=== PATIENT | female | born 1975 | race Caucasian/White ===

== ENCOUNTER 2016-03-03 14:16 | Emergency (ER) | payer BC ==
--- NOTE | 2016-03-03 14:46 | ER Document Report ---
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 She took it again this morning and she got a diastolic of 101. She went to [facility] and they were getting triple over triple blood pressures they sent her to the emergency department.. 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 - Related Data Allergies/Adverse Reactions: No Known Allergies Allergy (Unverified 03/03/16 14:46)
--- NOTE | 2016-03-03 16:19 | ER Document Report ---
ED General - General Chief Complaint: High Blood Pressure Stated Complaint: BLOOD PRESSURE PROBLEM Mode of Arrival: Ambulatory TRAVEL OUTSIDE OF THE [place] IN LAST 30 DAYS: No - HPI Patient complains to provider of: hypertension headache Notes: Patient coming in with a headache in the left frontal region and also with left lateral neck pain ongoing for the last to 3 days. He also states last few daysor blood pressure was elevated. Patient went to a local urgent care blood pressure systolic was over 180 states last time he took her blood pressure her diastolic was greater than 140. Patient was encouraged to come to the ER. Upon arrival patient's blood pressure now systolic of 150. Patient states she did take Motrin today headache is improving. Patient states increased stress due to work over the last few days. Otherwise denies any other symptoms no photophobia no trauma no fevers or chills no nausea no vomiting no diarrhea - Related Data Allergies/Adverse Reactions: No Known Allergies Allergy (Unverified 03/03/16 14:46) Past Medical History - General Information source: Patient - Social History Smoking Status: Never Smoker Chew tobacco use (# tins/day): No Frequency of alcohol use: None Drug Abuse: None Family History: Reviewed & Not Pertinent Patient has suicidal ideation: No Patient has homicidal ideation: No Renal/ Medical History: Denies: Hx Peritoneal Dialysis Review of Systems - Review of Systems Constitutional: Other - Hypertension EENT: No symptoms reported Cardiovascular: No symptoms reported Respiratory: No symptoms reported Gastrointestinal: No symptoms reported Genitourinary: No symptoms reported Female Genitourinary: No symptoms reported Musculoskeletal: No symptoms reported Skin: No symptoms reported Hematologic/Lymphatic: No symptoms reported Neurological/Psychological: Headaches -: Yes All other systems reviewed and negative Physical Exam - Vital signs Vitals: Temp Pulse Resp BP Pulse Ox 98 F 84 16 154/98 H 99 03/03/16 14:30 03/03/16 14:30 03/03/16 14:30 03/03/16 14:30 03/03/16 14:30 Interpretation: Hypertensive - General General appearance: Appears well, Alert - HEENT Head: Normocephalic, Atraumatic Eyes: Normal Cornea: Normal Pupils: PERRL Ears: Normal External canal: Normal Tympanic membrane: Normal Sinus: Normal Nasal: Normal Mouth/Lips: Normal Pharynx: Normal Neck: Normal - Respiratory Respiratory status: No respiratory distress Chest status: Nontender Breath sounds: Normal Chest palpation: Normal - Cardiovascular Rhythm: Regular Heart sounds: Normal auscultation Murmur: No - Abdominal Inspection: Normal Distension: No distension Bowel sounds: Normal Tenderness: Nontender Organomegaly: No organomegaly - Back Back: Normal, Nontender - Extremities General upper extremity: Normal inspection, Nontender, Normal color, Normal ROM , Normal temperature General lower extremity: Normal inspection, Nontender, Normal color, Normal ROM , Normal temperature, Normal weight bearing. No: Christine's sign - Neurological Neuro grossly intact: Yes Cognition: Normal Orientation: AAOx4 Arnaldo Coma Scale Eye Opening: Spontaneous [place] Coma Scale Verbal: Oriented [place] Coma Scale Motor: Obeys Commands Arnaldo Coma Scale Total: 15 Speech: Normal Motor strength normal: LUE, RUE, LLE, RLE Sensory: Normal - Psychological Associated symptoms: Normal affect, Normal mood - Skin Skin Temperature: Warm Skin Moisture: Dry Skin Color: Normal Course - Re-evaluation Re-evalutation: 03/03/16 22:47 Long discussion about hypertension and headaches. More likely patient's headache is related to tension is noted is in a tension headache distribution. Patient also wants information about hypertension treatment in the ER this time does not think she is appropriate for any treatment recommend follow-up with her PCP. Patient will be given Valium for treatment of her tension headaches. Patient agrees to plan will be discharged home. - Vital Signs Vital signs: Temp Pulse Resp BP Pulse Ox 98 F 81 20 148/96 H 98 03/03/16 16:47 03/03/16 16:47 03/03/16 16:47 03/03/16 16:47 03/03/16 16:47 Discharge - Discharge Clinical Impression: Tension headache Condition: Good Disposition: HOME, SELF-CARE Instructions: Tension Headache ([facility]) Additional Instructions: At this time your examination and complaint is consistent with a tension headache please follow-up with your primary care physician. We will prescribe you low-dose Valium to aid in your headache. Your blood pressure is elevated however this time does not require any treatment here in the ER. More likely your blood pressure is elevated due to her headache and the increased stress in her life. Recommend following up with your primary care physician in about a week. Return to ER if any symptoms worsen. Prescriptions: Diazepam [Valium 2 mg Tablet] 2 mg PO Q6HP PRN #15 tablet PRN Reason: Forms: Return to Work
[2016-03-03 16:48] VITALS: BP 148/96
== END 2016-03-03 16:30 | disposition home or self-care (01) ==
LOC: ER 14:16
DX: G44.209 Tension-type headache, unspecified, not intractable (principal); R03.0 Elevated blood-pressure reading, without diagnosis of hypertension; M54.2 Cervicalgia
CPT/HCPCS: 99283